=== PATIENT | female | born 1950 | race Caucasian/White ===

== ENCOUNTER → 2017-04-02 | Outpatient (CLI) | payer MEDICARE, OTHER ==
--- NOTE | 2017-04-02 16:08 | RAD ---
Examination: DEXA scan History: History of ovarian failure Comparison: 05/30/2005 Findings: The bone mineral density in the lumbar spine is 1.098 g/sq cm with a T score of 1.0 and Z score of 1.5. Compared to prior exam the bone mineral density has increased by 7.9%. The sBMD of the right femur is 955 mg/sq cm with a T score of 0.0 and a Z score of 0.5. Compared to prior exam the bone mineral density is decreased by -2.1%. Impression: The bone mineral density in the lumbar spine and in the right femur is normal.
--- NOTE | 2017-04-02 16:13 | RAD ---
DATE: 04/02/2017 EXAM: MAMMO WENDI SCREENING BILATERAL HISTORY: Routine screening COMPARISON: None available. This is dictated as a baseline exam. This study was interpreted with the benefit of Computerized Aided Detection (CAD). FINDINGS: Breast Density: SCATTERED The breast parenchyma shows scattered fibroglandular densities. Breast parenchyma level B. There are no dominant suspicious masses, suspicious microcalcifications or evidence of architectural distortion. IMPRESSION: Negative mammogram. BI-RADS CATEGORY: 1 NEGATIVE RECOMMENDED FOLLOW-UP: 12M 12 MONTH FOLLOW-UP PQRS compliance statement: Patient information was entered into a reminder system with a target due date 04/02/2018 for the next mammogram. Mammography is a sensitive method for finding small breast cancers, but it does not detect them all and is not a substitute for careful clinical examination. A negative mammogram does not negate a clinically suspicious finding and should not result in delay in biopsying a clinically suspicious abnormality. "Our facility is accredited by the [employer] Mammography Program."
== END | disposition home or self-care (01) ==
LOC: MAMMO 14:36
PROVIDERS: ATTEND Family Medicine
DX: Z12.31 Encounter for screening mammogram for malignant neoplasm of breast (principal); Z00.01 Encounter for general adult medical examination with abnormal findings; E28.39 Other primary ovarian failure
CPT/HCPCS: 77063; 77067; 77080

== ENCOUNTER → 2017-12-13 | Outpatient (CLI) | payer MEDICARE, OTHER ==
--- NOTE | 2017-12-13 17:06 | RAD ---
EXAM: Left lower extremity venous Doppler sonogram. HISTORY: Pain and swelling. TECHNIQUE: Nagel scale and color Doppler sonographic evaluation of the left lower extremity veins with spectral waveform analysis was performed. FINDINGS: There is normal color flow, normal compressibility and there are normal spectral waveforms in the common femoral, superficial femoral, popliteal, posterior tibial and greater saphenous veins. IMPRESSION: No Doppler evidence of lower extremity deep venous thrombosis. Electronically signed by: Zuleyka Pryor MD (12/13/2017 5:03 PM) [facility]
== END | disposition home or self-care (01) ==
LOC: US 16:34
PROVIDERS: ATTEND Family Medicine
DX: M79.605 Pain in left leg (principal)
CPT/HCPCS: 93971

== ENCOUNTER → 2018-02-28 | Outpatient (CLI) | payer MEDICARE, OTHER ==
[~2018-02-28] MED LIST: IOHEXOL 240 MG/ML 50ML VIAL. ONE; IOHEXOL 300 MG/ML 75 ML VIAL. IV ONE
[2018-02-28 16:22] LABS: BASO % 0 % (0-3); EOS # 0.2 x10^3/uL (0.0-0.7); EOS % 2 % (0-3); HEMATOCRIT 43.2 % (36.0-47.0); HEMOGLOBIN 14.5 g/dL (12.0-15.5); LYMPH # 1.7 x10^3/uL (1.0-4.8); LYMPH % 17 % (24-48); MEAN CORPUSCULAR HEMOGLOBIN 31 pg (25-35); MEAN CORPUSCULAR HGB CONC 34 g/dL (31-37); MEAN CORPUSCULAR VOLUME 94 fL (79-100); MONO % 10 % (0-9); NEUT % 71 % (31-73); PLATELET COUNT 283 x10^3/uL (140-400); RED CELL DISTRIBUTION WIDTH 13.8 % (11.5-14.5); WHITE BLOOD COUNT 9.9 x10^3/uL (4.0-11.0)
[2018-02-28 16:32] LABS: ALBUMIN 3.6 g/dL (3.4-5.0); ALBUMIN/GLOBULIN RATIO 0.8 (1.0-1.7); CALCIUM 9.5 mg/dL (8.5-10.1); CREATININE 0.8 mg/dL (0.6-1.0); GFR 71.3; POTASSIUM 3.9 mmol/L (3.5-5.1); TOTAL BILIRUBIN 0.5 mg/dL (0.2-1.0); TOTAL PROTEIN 8.2 g/dL (6.4-8.2)
--- NOTE | 2018-02-28 17:10 | RAD ---
PQRS Compliance Statement: One or more of the following individualized dose reduction techniques were utilized for this examination: 1. Automated exposure control 2. Adjustment of the mA and/or kV according to patient size 3. Use of iterative reconstruction technique CT ABD PELV W/ORAL IV CONTRAST Clinical Indication: GENERALIZED ABDOMINAL PAIN. Comparison: None. Technique: Helical CT imaging of the abdomen and pelvis is performed after 75 cc of Omnipaque 300 IV contrast. Oral contrast also given. Findings: 3 mm nodule right middle lobe. 4 mm nodule in the posterior left lower lobe. Minimal scarring or atelectasis in the lung bases. Cardiac size normal. Liver, gallbladder, spleen, pancreas, adrenal glands, and abdominal aorta are normal. Small right upper pole renal cyst. Kidneys enhance symmetrically. Mild bilateral perinephric stranding. Suspect minimal left UPJ stenosis. Ureters are normal. Stomach unremarkable. No dilated small bowel. Distal colon diverticulosis. Scattered stool in the colon. No colon wall thickening. Appendix not identified, no secondary signs of appendicitis. No abdominal adenopathy or free fluid. Urinary bladder is normal. Hysterectomy. No pelvic free fluid. Vacuum disc phenomenon L3/L4, T12/L1, and T11/T12. IMPRESSION: 1. No acute abdominal or pelvic abnormality. 2. Distal colon diverticulosis without diverticulitis. 3. Suspect minimal left UPJ stenosis. 4. There are 2 sub-6 mm nodules in the lungs. If patient has risk factors for lung malignancy recommend CT chest follow-up in 12 months. If patient does not have risk factors, no further follow-up is required per Fleischner Society guidelines. Electronically signed by: Parminder Hernandez MD (02/28/2018 5:06 PM) [id number]
== END | disposition home or self-care (01) ==
LOC: CT 15:14
PROVIDERS: ATTEND Family Medicine
DX: K57.30 Diverticulosis of large intestine without perforation or abscess without bleeding (principal); R91.8 Other nonspecific abnormal finding of lung field; N28.1 Cyst of kidney, acquired
CPT/HCPCS: 36415; 74177; 80053; 82150; 83690; 85025; Q9966; Q9967

== ENCOUNTER → 2018-06-19 | Outpatient (CLI) | payer MEDICARE, OTHER ==
--- NOTE | 2018-06-19 13:51 | RAD ---
DATE: 06/19/2018 EXAM: MAMMO WENDI SCREENING BILATERAL HISTORY: Routine screening COMPARISON: 04/02/2017 This study was interpreted with the benefit of Computerized Aided Detection (CAD). Breast Density: SCATTERED The breast parenchyma shows scattered fibroglandular densities. Breast parenchyma level B. FINDINGS: 2-D and 3-D tomosynthesis imaging was performed in CC and MLO projections. No new or enlarging breast densities are seen. No suspicious microcalcifications are evident. IMPRESSION: Stable mammograms without evidence of malignancy. BI-RADS CATEGORY: 1 NEGATIVE RECOMMENDED FOLLOW-UP: 12M 12 MONTH FOLLOW-UP PQRS compliance statement: Patient information was entered into a reminder system with a target due date for the next mammogram. Mammography is a sensitive method for finding small breast cancers, but it does not detect them all and is not a substitute for careful clinical examination. A negative mammogram does not negate a clinically suspicious finding and should not result in delay in biopsying a clinically suspicious abnormality. "Our facility is accredited by the [employer] Mammography Program."
== END | disposition home or self-care (01) ==
LOC: MAMMO 10:05
PROVIDERS: ATTEND Family Medicine
DX: Z12.31 Encounter for screening mammogram for malignant neoplasm of breast (principal)
CPT/HCPCS: 77063; 77067

== ENCOUNTER → 2019-06-26 | Outpatient (CLI) | payer MEDICARE, OTHER ==
--- NOTE | 2019-06-26 15:41 | RAD ---
Right forearm 2 views, right wrist 2 views. HISTORY: Pain, fall, laceration wound forearm Right forearm AP and lateral views were taken of the right forearm. There is not evidence of an acute fracture or osseous abnormality. An opaque foreign body is not identified. Right wrist 2 views were taken of the right wrist. There is not evidence of an acute fracture or osseous abnormality. IMPRESSION: 1. Negative right wrist. 2. Negative right forearm. Electronically signed by: Santino Reza MD (06/26/2019 3:38 PM) [id number]
== END | disposition home or self-care (01) ==
LOC: DXRAD 14:33
PROVIDERS: ATTEND Physician Assistant
DX: M79.631 Pain in right forearm (principal); W19.XXXA Unspecified fall, initial encounter; Y93.89 Activity, other specified; Y99.8 Other external cause status
CPT/HCPCS: 73090; 73100

== ENCOUNTER 2019-09-19 21:20 | Emergency (ER) | payer MEDICARE, OTHER ==
[~2019-09-19] VITALS: Ht 160 cm; Wt 97.7 kg
[2019-09-19 21:43] VITALS: BP 119/66
[2019-09-19] MEDS: ORPHENADRINE CITRATE 60 MG/2 ML VIAL. IM ONE (22:07)
[2019-09-19] MEDS: HYDROcodone/APAP 5/325MG 1 TAB TABLET PO ONE (22:07)
[2019-09-19] MEDS: KETOROLAC 60 MG/2 ML VIAL. IM ONE (22:07)
--- NOTE | 2019-09-19 22:23 | RAD ---
EXAM: AP, lateral and lumbosacral spot views of the lumbar spine DATE: 09/19/2019 9:45 PM INDICATION: Severe low back pain COMPARISON: No Prior FINDINGS: Lumbar vertebral body heights are preserved. Trace vertebral body height loss at T11 and T12 likely physiologic wedging. L3-4, mild L4-5 disc height loss. Mild disc height loss at multiple levels in the thoracic spine. No acute fracture. No spondylolisthesis. Moderate facet degenerative changes at multiple levels. IMPRESSION: 1. Multilevel spondylosis as above 2. Trace vertebral body height loss at T11 and T12 likely physiologic wedging. 3. Negative acute fracture or subluxation. Electronically signed by: Cosme Maradiaga MD (09/19/2019 10:20 PM) ESTHELA
[2019-09-19 22:40] LABS: BILIRUBIN,URINE NEG (NEG); CLARITY,URINE CLOUDY; COLOR,URINE YELLOW; GLUCOSE,URINE NEG (NEG)
[2019-09-19 22:41] LABS: NITRITE,URINE POS (NEG); UROBILINOGEN,URINE 0.2 mg/dL (0.2 mg/dL)
[2019-09-19 22:42] LABS: BACTERIA,URINE MANY /HPF (0-FEW); RBC,URINE OCC /HPF (0-2); SQUAMOUS EPITHELIAL CELL,UR MOD /LPF
--- NOTE | 2019-09-19 22:43 | PHYS DOC ---
Past History Past Medical History: Fibromyalgia, Other Additional Past Medical Histor: OVERACTIVE BLADDER Past Surgical History: , Hysterectomy, Other Additional Past Surgical Histo: BLADDER TIE AND SLING Alcohol Use: Occasionally General Adult EDM: Chief Complaint: BACK PAIN OR INJURY HPI: HPI: Patient is a 69-year-old female who presented to ER today for evaluation of low back pain that been going on for 3 days. Patient denies any injury, no abdominal pain, no nausea vomiting. The pain is aching in nature, hurt worse when she moves her back around or reaching over to get anything above her head. Patient also complained of frequent urination. Patient denies any blood in her urine. Patient denies any cough or fever. Patient denies any bowel or bladder incontinence. Review of Systems: Review of Systems: Constitutional: Denies fever or chills Eyes: Denies change in visual acuity HENT: Denies nasal congestion or sore throat Respiratory: Denies cough or shortness of breath Cardiovascular: Denies chest pain or edema GI: Denies abdominal pain, nausea, vomiting, bloody stools or diarrhea : Denies dysuria, positive urinary frequency Musculoskeletal: Positive for back pain, low back pain Integument: Denies rash Neurologic: Denies headache, focal weakness or sensory changes Endocrine: Denies polyuria or polydipsia Lymphatic: Denies swollen glands Psychiatric: Denies depression or anxiety Heart Score: Risk Factors: Risk Factors: DM, Current or recent (<one month) smoker, HTN, HLP, family history of CAD, obesity. Risk Scores: Score 0 - 3: 2.5% MACE over next 6 weeks - Discharge Home Score 4 - 6: 20.3% MACE over next 6 weeks - Admit for Clinical Observation Score 7 - 10: 72.7% MACE over next 6 weeks - Early Invasive Strategies Current Medications: Current Meds: Current Medications Medications (Trade) Dose Ordered Sig/Daisy Start Time Stop Time Status Last Admin Dose Admin Acetaminophen/ Hydrocodone Bitart (Lortab 5/325) 1 tab 1X ONCE 09/19/19 22:00 09/19/19 22:01 DC 09/19/19 22:07 1 TAB Epinephrine HCl (EPINEPHrine AMPULE) 1 mg STK-MED ONCE 09/19/19 21:23 09/19/19 21:24 DC Ketorolac Tromethamine (Toradol Im) 60 mg 1X ONCE 09/19/19 22:00 09/19/19 22:01 DC 09/19/19 22:07 60 MG Orphenadrine Citrate (Norflex) 60 mg 1X ONCE 09/19/19 22:00 09/19/19 22:01 DC 09/19/19 22:07 60 MG Allergies: Allergies: Allergies Coded Allergies Type Severity Reaction Last Updated Verified Sulfa (Sulfonamide Antibiotics) Allergy Unknown 02/28/18 Yes Physical Exam: PE: Constitutional: Well developed, well nourished, no acute distress, non-toxic appearance. [] HENT: Normocephalic, atraumatic, bilateral external ears normal, oropharynx moist, no oral exudates, nose normal. [] Eyes: PERRLA, EOMI, conjunctiva normal, no discharge. [] Neck: Normal range of motion, no tenderness, supple, no stridor. [] Cardiovascular:Heart rate regular rhythm, no murmur [] Lungs & Thorax: Bilateral breath sounds clear to auscultation [] Abdomen: Bowel sounds normal, soft, no tenderness, no masses, no pulsatile masses. [] Skin: Warm, dry, no erythema, no rash. [] Back: No tenderness, no CVA tenderness. [] Extremities: No tenderness, no cyanosis, no clubbing, ROM intact, no edema. [] Neurologic: Alert and oriented X 3, normal motor function, normal sensory function, no focal deficits noted. [] Psychologic: Affect normal, judgement normal, mood normal. [] Current Patient Data: Vital Signs: Vital Signs Date Time Temp Pulse Resp B/P (MAP) Pulse Ox O2 Delivery O2 Flow Rate FiO2 09/19/19 21:43 97.9 75 20 119/66 (83) 96 Room Air EKG: EKG: [] Radiology/Procedures: Radiology/Procedures: [][address] [address] IMAGING REPORT Signed PATIENT: HOLLI BUENROSTRO V ACCOUNT: [id number] : 1950 LOCATION: ER AGE: 69 SEX: F EXAM STATUS: REG ER ORD. PHYSICIAN: RADHA JOHNSON DO REASON: Severe LOWER BACK PAIN PROCEDURE: LUMBAR SPINE 2-3V EXAM: AP, lateral and lumbosacral spot views of the lumbar spine DATE: 09/19/2019 9:45 PM INDICATION: Severe low back pain COMPARISON: No Prior FINDINGS: Lumbar vertebral body heights are preserved. Trace vertebral body height loss at T11 and T12 likely physiologic wedging. L3-4, mild L4-5 disc height loss. Mild disc height loss at multiple levels in the thoracic spine. No acute fracture. No spondylolisthesis. Moderate facet degenerative changes at multiple levels. IMPRESSION: 1. Multilevel spondylosis as above 2. Trace vertebral body height loss at T11 and T12 likely physiologic wedging. 3. Negative acute fracture or subluxation. Electronically signed by: Cosme Hinds MD (09/19/2019 10:20 PM) [facility] DICTATED AND SIGNED BY: COSME HINDS MD DATE: 09/19/192219 CC: ALEXA COREAS MD; RADHA JOHNSON DO ~ Course & Med Decision Making: Course & Med Decision Making Pertinent Labs and Imaging studies reviewed. (See chart for details) Patient is a 69-year-old female who was evaluated in ER due to low back pain, x- ray did not show any fracture or any acute problem. Patient do have evidence of urinary tract infection. Patient will be discharged home with pain medication and antibiotic. Dragon Disclaimer: Rangel Disclaimer: This electronic medical record was generated, in whole or in part, using a voice recognition dictation system. Departure Departure: Impression: Primary Impression: Back pain Additional Impression: UTI (urinary tract infection) Disposition: 01 HOME/RESIDENCE PRIOR TO ADM Condition: STABLE Referrals: ALEXA COREAS MD (PCP) PLEASE FOLLOW UP WITH YOUR DOCTOR NEEDED Patient Instructions: Back Pain, Adult, Urinary Tract Infection Additional Instructions: Thank you for visiting our Emergency Department. We appreciate you trusting us with your care. If any additional problems come up don't hesitate to return to visit us. Please follow up with your primary care provider so they can plan additional care if needed and know about the problem that you had. If symptoms worsen come back to the Emergency Department. Any concerning symptoms that start such as chest pain, shortness of air, weakness or numbness on one side of the body, running high fevers or any other concerning symptoms return to the ER. Scripts Naproxen Sodium (ANAPROX DS) 550 Mg Tablet 1 TAB PO BID PRN for PAIN for 7 Days, #15 TAB 0 Refills Prov: RADHA JOHNSON DO 09/19/19 Levofloxacin (LEVAQUIN) 500 Mg Tablet 1 TAB PO DAILY for UTI for 7 Days, #7 TAB 0 Refills Prov: RADHA JOHNSON DO 09/19/19 Justification of Admission: Justification of Admission: Justification of Admission Dx: N/A RADHA JOHNSON DO Sep 19, 2019 22:43
[2019-09-19] MEDS ORDERED: NAPR-682 PO (23:00)
[2019-09-19] MEDS ORDERED: LEVO500T59 PO (23:00)
== END 2019-09-19 23:00 | disposition home or self-care (01) ==
LOC: ER 21:20
DX: N39.0 Urinary tract infection, site not specified (principal); M54.5 Low back pain; M79.7 Fibromyalgia; Z98.890 Other specified postprocedural states; Z90.710 Acquired absence of both cervix and uterus; Z88.2 Allergy status to sulfonamides
CPT/HCPCS: 72100; 81001; 87086; 96372; 99284; J1885; J2360; 87077; 87186

== ENCOUNTER → 2020-03-04 | Outpatient (CLI) | payer MEDICARE, OTHER ==
[~2020-03-04] MED LIST changes: -IOHEXOL 240 MG/ML 50ML VIAL. ONE; -IOHEXOL 300 MG/ML 75 ML VIAL. IV ONE; +LEVO500T59 PO; +NAPR-682 PO
--- NOTE | 2020-03-04 13:27 | RAD ---
EXAM: DUAL ENERGY X-RAY ABSORPTIOMETRY (DEXA). HISTORY: Postmenopausal screening. FINDINGS: The lowest measured T-score is -1.7 at the right femoral neck, based on a bone mineral dens ity of 0.804 g/cm^2. Refer to the worksheets for full detail. In comparison with the baseline study of 05/30/2005, average bone mineral density at the lumbar spine has changed +4.1%, while the average density at the hips has changed -5.3%. IMPRESSION: Low bone mass. Bone mineral density yields a T-score between -1.0 and -2.5. Fracture risk is increase d. FRAX was not calculated. METHODOLOGY: Dual energy x-ray absorptiometry was performed to measure bone mineral density. The foll owing analysis is based on the 2019 Official Positions of the International Society for Clinical Dens itometry: Measurements of the hips and the average of L1-L4 are preferred. When the spine and/or hip cannot be feasibly measured or interpreted, or in the setting of hyperparathyroidism, distal radial bone minera l density may be measured. The lumbar spine T-score is based on the average bone mineral density of L1-L4. In the setting of art ifact or anatomic abnormality, some lumbar levels may be excluded, and the remaining levels used for calculation. A single lumbar level is not used for diagnosis, and if only a single level is available for assessment, another anatomic site will be used to assign a diagnosis. The hip T-score is based on the bone mineral density measurement of the femoral neck or total proxima l femur of either side, whichever is lowest. Bilateral mean values are not used for diagnosis. The forearm T-score is derived from 33% of the distal radius of the nondominant forearm. For postmenopausal and perimenopausal women, and men age 50 or older, of all ethnic groups, T-scores are calculated through comparison of the current measurement with the NHANES III database standard fo r females aged 20-29 years. The lowest T-score of the evaluated anatomic sites is used to a ssign a diagnosis based on the World Health Organization densitometric classification. In premenopausal females and males younger than age 50, a Z-score is calculated based on population s pecific reference data for patient sex and self-reported ethnicity. Electronically signed by: Emily Georges MD (03/04/2020 1:24 PM) [id number]
== END ==
LOC: DXRAD 11:22
PROVIDERS: ATTEND Family Medicine
DX: N95.1 Menopausal and female climacteric states (principal); N95.8 Other specified menopausal and perimenopausal disorders
CPT/HCPCS: 77080